=== PATIENT | female | born 1960 | race Caucasian/White ===

== ENCOUNTER → 2019-08-06 | Outpatient (REF) | payer OTHER | LOC: M LAB LCGH 14:20 | PROVIDERS: ATTEND Specialist | DX: M70.22 Olecranon bursitis, left elbow (principal) ==

== ENCOUNTER 2020-10-26 11:56 | Emergency (ER) | payer OTHER ==
[~2020-10-26] VITALS: Ht 154.9 cm; Wt 86.7 kg
[2020-10-26 11:57] VITALS: BP 157/78
[2020-10-26] MEDS ORDERED: LANTINJ4 (12:15)
--- NOTE | 2020-10-26 12:38 | REP ---
INDICATION: TRAUMA COMPARISON: None. TECHNIQUE: Four views left wrist. FINDINGS: There is fracture of the base of the 5th metacarpal. There is no other evidence of acute fracture or dislocation. IMPRESSION: Fracture base of 5th metacarpal. <Electronically signed by Jayro Alva > 10/26/20 [id number]
--- NOTE | 2020-10-26 12:40 | REP ---
INDICATION: TRAUMA COMPARISON: None. TECHNIQUE: Four views left hand. FINDINGS: There is a fracture of the base of the 5th metacarpal. No other fracture or dislocation is seen. IMPRESSION: Fracture base of 5th metacarpal. <Electronically signed by Jayro Alva > 10/26/20 [id number]
== END 2020-10-26 13:56 | disposition left against medical advice (07) ==
LOC: M ED 11:56
DX: Z53.21 Procedure and treatment not carried out due to patient leaving prior to being seen by health care provider (principal)

== ENCOUNTER → 2020-11-13 | Outpatient (REF) | payer OTHER ==
[~2020-11-13] MED LIST: LANTINJ4
[2020-11-13 15:51] LABS: BILIRUBIN,TOTAL 0.4 MG/DL (0.2-1.0); CHOLESTEROL RISK RATIO 7.382 (<5); CREATININE FOR GFR 1.01 MG/DL (0.55-1.30); GLOMERULAR FILTRATION RATE 59.1 (>45); POTASSIUM SERUM 4.1 MEQ/L (3.5-5.1); TOTAL PROTEIN 7.5 GM/DL (6.4-8.2)
[2020-11-13 15:52] LABS: HEMOGLOBIN A1c 11.6 %
[2020-11-13 15:59] LABS: MALB URINE SIEMENS 8.5 MG/L; MAU/CREAT RATIO 8.1 MCG/MG (0.0-30.0)
== END ==
LOC: M SFHCPLAZ 14:04
PROVIDERS: ATTEND Family Medicine
DX: R79.89 Other specified abnormal findings of blood chemistry (principal); E11.9 Type 2 diabetes mellitus without complications; Z13.220 Encounter for screening for lipoid disorders
CPT/HCPCS: 36415; 80053; 80061; 82043; 83036; G0463

== ENCOUNTER → 2020-11-20 | Outpatient (REF) | payer OTHER ==
[2020-11-20 13:45] LABS: CALCIUM LEVEL 9.4 MG/DL (8.8-10.2); GLOMERULAR FILTRATION RATE 59.8 (>45); POTASSIUM SERUM 4.8 MEQ/L (3.5-5.1)
[2020-11-20 13:58] LABS: PTH INTACT 60.2 PG/ML (18.5-88.0)
== END ==
LOC: M PLALAB 12:45
PROVIDERS: ATTEND Family Medicine
DX: E83.52 Hypercalcemia (principal)

== ENCOUNTER → 2021-02-01 | Outpatient (CLI) | payer OTHER ==
[2021-02-01 13:13] LABS: BASO # 0.1 10^3/uL (0.0-0.2); BASO % 1.6 % (0.0-1.0); EOS # 0.1 10^3/uL (0.0-0.5); HEMATOCRIT 43.2 % (36.0-47.0); HEMOGLOBIN 13.5 g/dl (12.0-15.5); LYMPH # 2.1 10^3/uL (1.5-5.0); MEAN CORPUSCULAR HEMOGLOBIN 29.5 pg (27.0-33.0); MEAN CORPUSCULAR HGB CONC 31.3 g/dl (32.0-36.5); MEAN CORPUSCULAR VOLUME 94.3 fl (80.0-96.0); MONO # 0.7 10^3/uL (0.0-0.8); MONO % 8.2 % (2.0-8.0); NEUTROPHILS # 4.9 10^3/uL (1.5-8.5); NEUTROPHILS % 62.6 % (36.0-66.0); PLATELET COUNT, AUTOMATED 510 10^3/uL (150-450); RED BLOOD COUNT 4.58 10^6/uL (4.00-5.40); WHITE BLOOD COUNT 7.9 10^3/uL (4.0-10.0)
[2021-02-01 14:30] LABS: ALBUMIN 3.2 GM/DL (3.2-5.2); BILIRUBIN,TOTAL 0.3 MG/DL (0.2-1.0); CALCIUM LEVEL 9.5 MG/DL (8.8-10.2); CREATININE FOR GFR 1.11 MG/DL (0.55-1.30); POTASSIUM SERUM 4.4 MEQ/L (3.5-5.1)
== END ==
LOC: M PLALAB 12:02
PROVIDERS: ATTEND Family Medicine
DX: R53.83 Other fatigue (principal)

== ENCOUNTER → 2021-03-10 | Outpatient (CLI) | payer OTHER ==
[2021-03-10 19:21] LABS: HEMOGLOBIN A1c 7.5 %
== END ==
LOC: M PLALAB 14:35
PROVIDERS: ATTEND Family Medicine
DX: E11.9 Type 2 diabetes mellitus without complications (principal); Z12.11 Encounter for screening for malignant neoplasm of colon

== ENCOUNTER 2023-11-23 08:04 | Day surgery (SDC) | payer MEDICARE, MEDICAID ==
[~2023-11-23] VITALS: Ht 165.1 cm; Wt 92.1 kg
[~2023-11-23 08:04] MED LIST changes: +ATOR80TA59 PO; +ELIQ5TAB PO; +GABA600T4 PO; +GABA800T4 PO; +JARD1TAB3 PO; -LANTINJ4; +LANTINJ4 SC; +LOSA100T46 PO; +MAGN400T33 PO; +METO10TA2 PO; +PHENYLEPHRINE 10% OPHTH SOL 5ML OD PRN; +SEMA3TAB4 PO; +SENN-83 PO; +SUMA50TA2 PO; +VITA200016 PO
[2023-11-23] MEDS: OFLOXACIN 0.3 % (OCUFLOX) OPTH SOL 5ML OD ONE (09:00)
[2023-11-23] MEDS ORDERED: MIDAZOLAM INJ 2MG/2ML VIAL As Ordered ONE (09:09)
[2023-11-23] MEDS ORDERED: fentaNYL 100 MCG/2 ML INJECTION As Ordered ONE (09:09)
[2023-11-23] MEDS: LIDOCAINE 3.5 % 1ML OPHTH TOPICAL GEL OU ONE (09:17)
[2023-11-23] MEDS: LIDOCAINE 1% SDV 5ML VIAL As Ordered ONE (09:44)
[2023-11-23] MEDS: BSS IRRIG/VANCO(10MG)/TOBRA(5MG)/EPINEPH(1:1000-0.5CC)500ML BAG-ORONLY As Ordered ONE (09:44)
[2023-11-23] MEDS: CEFUROXIME 1MG/0.1ML INTRACAMERAL INJ As Ordered ONE (09:44)
[2023-11-23 09:50] VITALS: BP 129/71; TEMP 97.4; O2SAT 97
[2023-11-23] MEDS: ATROPINE SULFATE 1% OPHTH SOLN 2ML BTL OD SCH (11:06)
[2023-11-23] MEDS: PHENYLEPHRINE 2.5% OPHTH SOL 2ML OD SCH (11:06)
[2023-11-23] MEDS: TROPICAMIDE 1% OPHTH SOLN 15ML OD SCH (11:06)
== END 2023-11-23 10:05 | disposition home or self-care (01) ==
LOC: M SDC 08:04
PROVIDERS: ATTEND Ophthalmology
DX: E11.36 Type 2 diabetes mellitus with diabetic cataract (principal); H25.11 Age-related nuclear cataract, right eye; I10 Essential (primary) hypertension; E78.00 Pure hypercholesterolemia, unspecified; M10.9 Gout, unspecified; Z79.899 Other long term (current) drug therapy; Z79.4 Long term (current) use of insulin; G43.909 Migraine, unspecified, not intractable, without status migrainosus; Z79.01 Long term (current) use of anticoagulants; Z90.710 Acquired absence of both cervix and uterus; Z86.718 Personal history of other venous thrombosis and embolism; Z88.2 Allergy status to sulfonamides
CPT/HCPCS: 66984; J0697; J2250; J3010; V2632

== ENCOUNTER 2023-11-30 06:04 | Day surgery (SDC) | payer MEDICARE, MEDICAID ==
[~2023-11-30] VITALS: Ht 165.1 cm; Wt 93.0 kg
[~2023-11-30 06:04] MED LIST changes: -PHENYLEPHRINE 10% OPHTH SOL 5ML OD PRN; +PHENYLEPHRINE 10% OPHTH SOL 5ML OS PRN
[2023-11-30] MEDS: OFLOXACIN 0.3 % (OCUFLOX) OPTH SOL 5ML OS ONE (06:35)
[2023-11-30] MEDS: LIDOCAINE 3.5 % 1ML OPHTH TOPICAL GEL OU ONE (06:36)
[2023-11-30] MEDS: TROPICAMIDE 1% OPHTH SOLN 15ML OS SCH (06:36)
[2023-11-30] MEDS: ATROPINE SULFATE 1% OPHTH SOLN 2ML BTL OS SCH (06:36)
[2023-11-30] MEDS: PHENYLEPHRINE 2.5% OPHTH SOL 2ML OS SCH (06:36)
[2023-11-30] MEDS ORDERED: MIDAZOLAM INJ 2MG/2ML VIAL As Ordered ONE (07:01)
[2023-11-30] MEDS ORDERED: fentaNYL 100 MCG/2 ML INJECTION As Ordered ONE (07:02)
[2023-11-30] MEDS: LIDOCAINE 1% SDV 5ML VIAL As Ordered ONE (07:57)
[2023-11-30] MEDS: BSS IRRIG/VANCO(10MG)/TOBRA(5MG)/EPINEPH(1:1000-0.5CC)500ML BAG-ORONLY As Ordered ONE (07:57)
[2023-11-30] MEDS: CEFUROXIME 1MG/0.1ML INTRACAMERAL INJ As Ordered ONE (07:57)
[2023-11-30 08:04] VITALS: BP 131/62; TEMP 98.2; O2SAT 97
== END 2023-11-30 08:20 | disposition home or self-care (01) ==
LOC: M SDC 06:04
PROVIDERS: ATTEND Ophthalmology
DX: H25.12 Age-related nuclear cataract, left eye (principal); I10 Essential (primary) hypertension; E78.00 Pure hypercholesterolemia, unspecified; E11.9 Type 2 diabetes mellitus without complications; Z79.899 Other long term (current) drug therapy; Z79.4 Long term (current) use of insulin; Z79.01 Long term (current) use of anticoagulants; Z86.718 Personal history of other venous thrombosis and embolism
CPT/HCPCS: 66984; J0697; J2250; J3010; V2632